=== PATIENT | female | born 1995 | race Two or more races ===

== ENCOUNTER 2022-02-20 19:00 | Emergency (ER) | payer SELFPAY ==
[2022-02-20] MEDS ORDERED: NAPROXEN 500 MG TABLET ONE (19:35)
[2022-02-20] MEDS ORDERED: DEXAMETHASONE SOD PHOS 20 MG/5 ML VIAL. ONE (20:29)
== END 2022-02-21 04:00 | disposition home or self-care (01) ==
LOC: ER 19:00
DX: J03.80 Acute tonsillitis due to other specified organisms (principal); B97.89 Other viral agents as the cause of diseases classified elsewhere
CPT/HCPCS: 87070; 87880; 96372; 99283